=== PATIENT | female | born 1980 ===

== ENCOUNTER 2018-08-09 05:55 | Day surgery (SDC) | payer OTHER ==
[~2018-08-09 05:55] MED LIST: CLARITIN5 MG
== END 2018-08-10 08:00 | disposition home or self-care (01) ==
LOC: CIR.AMB 05:55 → O/R 16:16 → SURH 16:16 → CIR.AMB 19:16 → SURH 08-10 12:57 → O/R 08-10 12:57
DX: N64.82 Hypoplasia of breast (principal); M62.08 Separation of muscle (nontraumatic), other site
CPT/HCPCS: 15830; 15847; 15877; 19325; C1789